=== PATIENT | male | born 1980 | race Caucasian/White ===

== ENCOUNTER 2017-03-24 08:03 | Day surgery (SDC) | payer BC ==
[2017-03-19 08:17] VITALS: BMI 38.2
[~2017-03-24 08:03] MED LIST: DEXAMETHASONE SOD PHOSPHATE 10 MG/ML 1 ML VIAL IV ONE; HEPARIN SODIUM,PORCINE 5,000 UNIT/ML 1 ML VIAL SQ ONE; HYDROmorphone 1 MG/ML 1 ML SYRINGE IVP PRN; LACTATED RINGERS 1,000 ML IV SCH; MIDAZOLAM 2 MG/2 ML VIAL IV PRN; ONDANSETRON 4 MG/2 ML VIAL IVP ONE; ceFAZolin 3 GM in SODIUM CHLORIDE 0.9% 100 ML IVPB ONE
[2017-03-24] MEDS ORDERED: LIDOCAINE 1% 20 ML VIAL (10MG/ML) FOR IV START INTRADERMA ONE (08:53)
[2017-03-24] MEDS ORDERED: DEXAMETHASONE SOD PHOSPHATE 10 MG/ML 1 ML VIAL IV ONE (08:54)
[2017-03-24] MEDS ORDERED: ONDANSETRON 4 MG/2 ML VIAL IVP ONE (08:54)
--- NOTE | 2017-03-24 11:45 | P.GSHP ---
History of Present Illness H&P Date: 03/24/17 Chief Complaint: Incarcerated umbilical hernia This a 36-year-old male who presents today for laparoscopic robotic-assisted repair of incarcerated umbilical hernia. The patient's had complaints of umbilical pain. He was seen [facility] found have incarcerated umbilical hernia. - Constitutional Constitutional: Reports as per HPI Past Medical History Additional Past Medical History / Comment(s): low Vitamin D History of Any Multi-Drug Resistant Organisms: MRSA Date of last positivie culture/infection: 06/2015 MDRO Source:: left elbow, rt knee, rt arm Past Surgical History: Hernia Repair Additional Past Surgical History / Comment(s): cyst removed from rt foot Past Anesthesia/Blood Transfusion Reactions: No Reported Reaction Past Psychological History: No Psychological Hx Reported Smoking Status: Never smoker Past Alcohol Use History: Rare Past Drug Use History: None Reported - Past Family History Mother Family Medical History: No Reported History Medications and Allergies Home Medications Medication Instructions Recorded Confirmed Type Fish Oil (Dose Unknown) 2 tab PO DAILY 03/19/17 03/19/17 History Mv-Min/Vit C/Glut/Lysine/Hc124 1 each PO DAILY 03/19/17 03/19/17 History [Airborne Tablet Chewable] Allergies Allergy/AdvReac Type Severity Reaction Status Date / Time bee pollen Allergy Severe Rash/Hives Verified 03/19/17 08:09 wasp Allergy Severe Rash/Hives Uncoded 03/19/17 08:09 Surgical - Exam Vital Signs Temp Pulse Resp BP Pulse Ox 97 F L 73 18 134/87 97 03/24/17 08:49 03/24/17 08:49 03/24/17 08:49 03/24/17 08:49 03/24/17 08:49 - General well developed, no distress - Eyes PERRL - ENT normal pinna - Neck no masses - Respiratory normal expansion - Cardiovascular Rhythm: regular - Abdomen Abdomen: soft, non tender Hernia: umbilical, incarcerated Assessment and Plan Plan: Incarcerated umbilical hernia. We'll perform laparoscopic robotic-assisted repair.
[2017-03-24] MEDS ORDERED: BUPIVACAIN-EPI 0.25%-1:200,000 30 ML VIAL SQ ONE (11:58)
[2017-03-24] MEDS ORDERED: SUCCINYLCHOLINE CHLORIDE VIAL 200 MG/10 ML VIAL IV ONE (12:01)
[2017-03-24] MEDS ORDERED: MIDAZOLAM 2 MG/2 ML VIAL ONE (12:01)
[2017-03-24] MEDS ORDERED: NEOSTIGMINE 1 MG/ML 10 ML VIAL ONE (12:01)
[2017-03-24] MEDS ORDERED: fentaNYL (PF) 50 MCG/ML 2 ML AMP ONE (12:01)
[2017-03-24] MEDS ORDERED: PROPOFOL 10 MG/ML 20 ML VIAL IV ONE (12:01)
[2017-03-24] MEDS ORDERED: ROCURONIUM BROMIDE 10 MG/ML 10 ML VIAL IV ONE (12:01)
[2017-03-24] MEDS ORDERED: NALOXONE 0.4 MG/ML 1 ML VIAL ONE (12:01)
[2017-03-24] MEDS ORDERED: HYDROmorphone (PF) 1 MG/ML ONE (12:01)
[2017-03-24] MEDS ORDERED: GLYCOPYRROLATE 0.2 MG/ML 2 ML VIAL ONE (12:01)
[2017-03-24] MEDS ORDERED: LIDOCAINE 1% INJ 10MG/ML (20 ML MDV) ONE (12:01)
--- NOTE | 2017-03-24 13:10 | P.OP ---
Date of Procedure: 03/24/17 Preoperative Diagnosis: Incarcerated umbilical hernia Postoperative Diagnosis: Incarcerated umbilical hernia Procedure(s) Performed: Laparoscopic robotic system repair of incarcerated umbilical hernia Removal incarcerated fat Implants: Anesthesia: JULIAA Surgeon: Toney Daugherty Estimated Blood Loss (ml): 5 Pathology: other (Incarcerated fat) Condition: stable Disposition: PACU Indications for Procedure: Operative Findings: Description of Procedure: Patient's placed on the operating table in supine position. He received general anesthesia. His abdomen was prepped and draped in usual sterile fashion. The skin incision sites were anesthetized with 1% local Xylocaine. Using a 5 mm optical blade less trocar in the left upper quadrant the perineal cavity is entered and then the abdomen was insufflated. After adequate insufflation the laparoscope was placed back the pleural cavity and then a 8 mm robotic trochars placed in the left lower quadrant and a 12 mm trochars placed in the left lateral position and the original 5 mm trocar was exchanged for an 8 mm robotic trocar. The patient's placed the left side up position and then docked to the robot. The hook cautery used to dissect the incarcerated fat out of the umbilical hernia. And then using oh the lock suture of the hernia was repaired. Then a piece of ventral light ST mesh was secured over top the repair with 2 OV lock suture. The patient was undocked from the robot. And the needles were retrieved. Incarcerated fat was achieved. The 12 mm trocar site was closed with 0 Ethibond suture. The trochars withdrawn and in the skin was closed interrupted 3-0 Monocryl suture. Dermabond was applied. Patient was sent to recovery in stable condition.
[2017-03-24] MEDS ORDERED: LACTATED RINGERS 1,000 ML IV ONE (13:13)
[2017-03-24 14:03] VITALS: TEMP 97.2
[2017-03-24 14:23] VITALS: RESP 18
[2017-03-24] MEDS ORDERED: HYDROcodone/APAP 7.5-325MG 1 EACH TAB PO ONE (15:08)
[2017-03-24 15:28] VITALS: BP 132/80; PULSE 68
== END 2017-03-24 16:10 | disposition home or self-care (01) ==
LOC: OR 08:03
PROVIDERS: ATTEND Surgery
DX: K42.0 Umbilical hernia with obstruction, without gangrene (principal); Z79.899 Other long term (current) drug therapy; Z88.8 Allergy status to other drugs, medicaments and biological substances; Z91.030 Bee allergy status
CPT/HCPCS: 88302; 49653; C1781; J2250; J0330; J1644; J1100; J2310; J2710; J0690; J2405; J2001; J3010; J1170; J2704